=== PATIENT | female | born 1985 | race Caucasian/White ===

== ENCOUNTER → 2016-06-18 | Outpatient (CLI) | payer OTHER | LOC: CIMAGING 11:19 | PROVIDERS: ATTEND Internal Medicine Endocrinology, Diabetes & Metabolism | DX: R10.9 Unspecified abdominal pain (principal) | CPT/HCPCS: 74150-PO ==

== ENCOUNTER → 2016-10-30 | Outpatient (CLI) | payer OTHER | LOC: BRMIMAGING 17:02 | PROVIDERS: ATTEND Family Medicine | DX: R05 Cough (principal); F17.200 Nicotine dependence, unspecified, uncomplicated | CPT/HCPCS: 71020-PO ==